=== PATIENT | female | born 1980 | race Caucasian/White ===

== ENCOUNTER 2016-04-09 12:40 | Emergency (ER) | payer MEDICAID ==
[2016-04-09] MEDS ORDERED: SODIUM CHLORIDE 0.9% 1,000 ML ONE (14:19)
== END 2016-04-09 16:47 | disposition home or self-care (01) ==
LOC: ER 12:40
DX: N92.0 Excessive and frequent menstruation with regular cycle (principal); N83.209 Unspecified ovarian cyst, unspecified side
CPT/HCPCS: 36415; 76856; 80048; 81003; 84703; 85025; 86850; 86900; 86901; 87491; 87591; 87800; 96360; 96361